=== PATIENT | female | born 1960 | race Caucasian/White ===

== ENCOUNTER → 2019-05-24 10:39 | Outpatient (CLI) | payer OTHER, SELFPAY ==
[2019-05-24 08:42] VITALS: BMI 26.2
[2019-05-24 11:54] LABS: AST(SGOT) 21 U/L (15-37); Alanine Aminotransfer ALT/SGPT 49 U/L (13-56); Albumin, Serum 4.1 g/dL (3.2-5.0); Alkaline Phosphatase 105 U/L (45-117); Anion Gap 6 (5-15); BUN 12 mg/dL (7-18); BUN/Creat Ratio 15.7 RATIO (10-20); Bilirubin, Direct 0.13 mg/dL (0.00-0.30); Calcium,Total 8.9 mg/dL (8.5-10.1); Chloride 105 mmol/L (98-107); Cholesterol 189 mg/dL (200); Creatinine, Serum 0.76 mg/dL (0.55-1.02); EST Glomerular Filtration Rate 82 mL/min (>60); Est Glom Filt Rate - Afr Amer 99 mL/min (>60); Globulin 3.5 g/dL (2.2-4.2); Glucose 102 mg/dL (74-106); High Density Lipoprotein 56 mg/dL; Potassium 3.8 mmol/L (3.5-5.1); Protein, Total 7.6 g/dL (6.4-8.2); Sodium Level 140 mmol/L (136-145); Triglycerides 180 mg/dL; Very Low Density Lipoprotein 36 mg/dL (5-40)
== END ==
PROVIDERS: Family Provider Family Medicine; PCP Family Medicine; Referring Provider Internal Medicine Cardiovascular Disease; Visit Provider Internal Medicine Cardiovascular Disease
DX: I10 Essential (primary) hypertension (principal); Z86.39 Personal history of other endocrine, nutritional and metabolic disease
CPT/HCPCS: 36415; 80048; 80061; 80076

== ENCOUNTER → 2019-06-26 09:11 | Outpatient (CLI) | payer OTHER, SELFPAY ==
[2019-05-24 08:42] VITALS: BMI 26.2
--- NOTE | 2019-06-26 09:14 | STE_ITS ---
Reason For Study: CAD Stress Results Protocol: ARJUN Maximum Predicted HR: 160 bpm Target HR: 136 bpm % Maximum Predicted HR: 83 % DurationHeart Rate Stage (mm:ss) (bpm) BP baseline 85 158/90 stage 1 3:00 103 160/90 stage 2 3:00 102 160/90 stage 3 3:00 125 162/90 stage 4 1:00 133 / recovery 88 158/88 Stress Duration: 10:00 mm:ss Maximum Stress HR: 133 bpm Baseline Echocardiogram Findings Stress Echo Wall motion Data Resting WM Intermediate WM Stress WM Interpretation Summary Exercise stress echo. 58-year-old lady with a history of hypertension, hyperlipidemia, coronary artery disease. Resting EKG demonstrates normal sinus rhythm with a rate of 76 bpm left bundle branch block is noted resting blood pressures 158/90 mmHg. The patient exercised according to regular Arjun protocol for a total duration of 10 minutes. The maximum heart rate attained was 142 bpm which was 88% of maximum predicted heart rate the maximum workload was 13.4 metabolic equivalents. At rest there were no ST or T wave changes noted other than the left bundle branch block pattern. At peak exercise the left bundle branch block pattern persisted. The resting blood pressure was 158/90 with a peak blood pressure 170/90 mmHg. No clinical angina was noted rate-pressure product was 20,250. The test was terminated due to the target heart rate being achieved. Stress echocardiogram. Resting echocardiographic images demonstrated borderline ejection fraction of 45% with septal IVCD pattern. At peak exercise there was thickening of all garcia reduction of the ventricular cavity size and peaking of ejection fraction of approximately 60%. No new wall motion abnormalities were noted. The above is not indicative of ischemia. Conclusion: Exercise stress test with no EKG criteria for ischemia at a high workload. Excellent functional capacity. Low normal ejection fraction with left bundle branch block pattern Ordering Physician: Rm Dawson Referring Physician: Rm Dawson Performed By: Supriya Macias, RDCS, RVT
== END ==
PROVIDERS: Family Provider Family Medicine; PCP Family Medicine; Referring Provider Internal Medicine Cardiovascular Disease; Visit Provider Internal Medicine Cardiovascular Disease
DX: I25.10 Atherosclerotic heart disease of native coronary artery without angina pectoris (principal)
CPT/HCPCS: 93017; 93350

== ENCOUNTER → 2020-05-30 07:15 | Outpatient (CLI) | payer MEDICAID, SELFPAY ==
[2019-05-24 08:42] VITALS: BMI 26.2
--- NOTE | 2020-05-30 07:18 | BI_ITS ---
MAMMOGRAPHY - BILATERAL SCREENING REASON FOR EXAM: Female, 59 years old. Routine annual screening examination. PERTINENT HISTORY: Mother with breast cancer. TECHNIQUE: Digital bilateral breast angela (3D mammographic acquisition) in the CC and MLO projections. 2-D mediolateral oblique (MLO) and craniocaudad (CC) views of both breasts were obtained. CAD: Full Field Digital Mammography with Computer Added Detection was performed. COMPARISON: Comparison is made with prior outside examination dated 05/22/2019. FINDINGS: Breast Composition: There are scattered areas of fibroglandular density. There are no dominant masses or suspicious calcifications. Stable 1.1 cm well-defined nodular density in the slightly upper medial aspect of the left breast. This most likely represents a small lymph node. There is also evidence of a faint 0.8 cm nodular density in the inferior medial portion of the left breast. Correlation with ultrasound is recommended for further evaluation. No other significant abnormalities are identified. BI/SCREEN MAMM (CAD) W/ANGELA BILAT IMPRESSION: Small nodular densities in the left breast as described. Correlation with ultrasound is recommended. ASSESSMENT CATEGORY: BIRADS Category 0: Incomplete. Need additional imaging evaluation. A letter regarding these results will be sent to the patient by the facility within 30 days. Approximately 10% of breast cancers are not detected by mammography. A normal mammogram should not delay biopsy of a clinically suspicious abnormality. [id number] Electronically Signed: Braeden Lan, at 8:26 EST , Service support ,
== END ==
PROVIDERS: PCP Family Medicine; Visit Provider Family Medicine
DX: Z12.31 Encounter for screening mammogram for malignant neoplasm of breast (principal); N63.20 Unspecified lump in the left breast, unspecified quadrant; Z80.3 Family history of malignant neoplasm of breast
CPT/HCPCS: 77063; 77067

== ENCOUNTER → 2020-06-05 09:22 | Outpatient (CLI) | payer MEDICAID, SELFPAY ==
[2019-05-24 08:42] VITALS: BMI 26.2
--- NOTE | 2020-06-05 09:24 | US_ITS ---
STUDY: ULTRASOUND BREAST - LEFT REASON FOR EXAM: Female, 59 years old. Abnormal screening mammogram. TECHNIQUE: Axial and longitudinal images of the LEFT breast were performed with a high resolution ultrasound transducer. # OF IMAGES: 25 COMPARISON: Comparison is made with prior mammogram dated 05/30/2020. FINDINGS: LEFT Breast: There is an 8 mm x 8 mm x 3 mm hypoechoic slightly irregular nodular density at the 7 o''clock position of the breast is 7 cm from nipple. Internal vascularity is seen. A similar appearing hypoechoic slightly irregular nodule measuring 1 cm x 0.6 cm x 0.5 cm is seen at the 10 o''clock position in the breast at 7 cm from the nipple. Internal vascularity is seen as well. Biopsy of both abnormalities is recommended. US/Breast Limited Unilateral IMPRESSION: 2 hypoechoic slightly irregular nodules at the 7 o''clock position of the breast and at the 10 o''clock position of the breasts is similar sinus on the nipple. A biopsy is recommended. ASSESSMENT CATEGORY: BIRADS Category 4: Suspicious - Biopsy Should Be Considered. A letter regarding these results will be sent to the patient by the facility within 30 days. Electronically Signed: Braeden Lan, at 11:12 EST , Service support ,
== END ==
PROVIDERS: PCP Family Medicine; Referring Provider Family Medicine; Visit Provider Family Medicine
DX: N63.24 Unspecified lump in the left breast, lower inner quadrant (principal)
CPT/HCPCS: 76642

== ENCOUNTER → 2020-06-19 | Outpatient (CLI) | payer OTHER, SELFPAY ==
--- NOTE | 2020-06-19 | IMM_PTH ---
PATIENT: YAHAIRA HOWARD LOC: [facility] U#:[id number] AGE/SX: 59/F ROOM: RE06/19/[address]: Dr. Randell Bojorquez MD : 1960 BED: DIS: 06/19/2020 SPEC #: [id number] RECD: 06/20/20 12:26 STATUS: DUANE RENicolás #: [id number] DAVIN: 06/19/20 00:[address]: Randell Bojorquez DEPT: IMMUNOHISTOCHEMISTRY RECD BY: Yaz Peterson ENTERED: 06/20/20 12:27 SP TYPE: IMMUNO OTHR DR: Dr. Brian Skelton DO Tissues: B - Left breast, NOS Procedures: Calponin-1(initial) CK8 (add) P40 (add) PHYSICIAN & INSTITUTION [place] [id number] SPECIMEN INFORMATION: Tissue Source: B - Left breast, lower inner quadrant, biopsy Clinical Info: Left breast mass x2 Specimen Number: [id number] CPT code: 36801, 77835 x2 METHODOLOGY: Deparaffinized sections of prefer/formalin-fixed tissue or PAP/DQ stained slides are incubated with monoclonal/polyclonal antibodies/oligonucleotide probes. Localization is made via biotin free immunoperoxidase method. Appropriate controls are performed and reacted as expected. Results on target cell population are indicated in the following table: RESULTS: ANTIBODY / CLONE RESULT P40 (BC28) positive Calponin-1 (TW894P) positive CK8 ([id number]) positive These tests were developed and their performance characteristics determined by [facility]. They may not have been cleared or approved by the U.S. Food and Drug Administration. The FDA has determined that such clearance or approval is not necessary. The above immunohistochemical/dualISH markers are ordered and reviewed by the Pathologist. INTERPRETATION: B. Left breast, lower inner quadrant, biopsy: Benign breast tissue. AM:saba 06/24/2020
--- NOTE | 2020-06-19 08:00 | BRBX_PTH ---
PATIENT: YAHAIRA HOWARD LOC: [facility] U#:[id number] AGE/SX: 59/F ROOM: RE06/19/[address]: Dr. Randell Bojorquez MD : 1960 BED: DIS: 06/19/2020 SPEC #: [id number] RECD: 06/19/20 09:11 STATUS: DUANE DANITZA #: [id number] DAVIN: 06/19/20 08:[address]: Randell Bojorquez DEPT: SURGICAL PATHOLOGY RECD BY: Deysi Briceno ENTERED: 06/19/20 10:27 SP TYPE: BREAST BX OTHR DR: Dr. Brian Skelton DO Tissues: A - Left breast, NOS B - Left breast, NOS Procedures: Surgery Specimen Level IV HEADER OPERATION: Left breast biopsy x2 PRE-OP DIAGNOSIS: Left breast mass x2 TISSUE SUBMITTED: A - Left breast tissue lower inner quadrant, B - Left breast tissue upper inner quadrant ISCHEMIC TIME: 1 minute FIXATION TIME: 11.5 hours MICROSCOPIC DIAGNOSIS A. Left breast, lower inner quadrant, core biopsy: Fibrocystic change. Focal intraductal hyperplasia without atypia. Banal microcalcifications. No evidence of malignancy. B. Left breast, upper inner quadrant, core biopsy: Fibrocystic change. Focal intraductal hyperplasia without atypia. Banal microcalcifications. No evidence of malignancy. See comment. AM:saba 06/20/20 COMMENT B. Immunohistochemistry ([id number]) supports the above diagnosis. MICROSCOPIC DESCRIPTION Slides are reviewed. GROSS DESCRIPTION A - Received in fixative is one container labeled with the patient's name and designated lower inner quadrant left breast. The specimen consists of multiple elongated fragments of degroot tissue that in aggregate measure 2 x 1 x 0.1 cm. The specimen is totally submitted in one cassette. B - Received in fixative is one container labeled with the patient's name and designated upper inner quadrant left breast. The specimen consists of multiple elongated fragments of degroot tissue that in aggregate measure 2.5 x 1 x 0.1 cm. The specimen is totally submitted in one cassette. / AM:saba 06/19/20 TC:5 CPT: 49946 x2
== END | disposition home or self-care (01) ==
PROVIDERS: PCP Family Medicine; Referring Provider Surgery; Visit Provider Surgery
DX: N60.12 Diffuse cystic mastopathy of left breast (principal); N62 Hypertrophy of breast
CPT/HCPCS: 88305; 88341; 88342

== ENCOUNTER → 2020-12-12 09:26 | Outpatient (CLI) | payer MEDICAID, SELFPAY ==
--- NOTE | 2020-12-12 09:29 | BI_ITS ---
MAMMOGRAPHY - UNILATERAL DIAGNOSTIC: LEFT BREAST REASON FOR EXAM: Female, 60 years old. post breast biopsy -- left breast PERTINENT HISTORY: Non-contributory. TECHNIQUE: Digital examination. Mediolateral oblique (MLO) and craniocaudad (CC) views of the breast were obtained. CAD: COMPARISON: None. FINDINGS: Breast Composition: Of scattered fibroglandular tissue There is 1 cm tiny nodule around 9 o''clock with a metallic clip aortic a tiny ill-defined nodule seen around 6 o''clock below the nipple with a metallic clip as well. Both of these are benign looking. No obvious spiculated lesion, microcalcifications, skin thickening or nipple retraction. There are benign-looking small lymph nodes in the left axilla. BI/DIAG MAMM W/CAD, UNILAT IMPRESSION: Negative for malignancy, Stable unilateral diagnostic mammogram. ASSESSMENT CATEGORY: FOLLOW-UP RECOMMENDATION: Approximately 10% of breast cancers are not detected by mammography. A normal mammogram should not delay biopsy of a clinically suspicious abnormality. Electronically Signed: Sangita Foster, at 9:14 EDT Tel , Service support ,
== END ==
PROVIDERS: PCP Family Medicine; Referring Provider Surgery; Visit Provider Surgery
DX: N63.0 Unspecified lump in unspecified breast (principal)
CPT/HCPCS: 77061; 77065; G0279

== ENCOUNTER 2021-09-10 12:38 | Outpatient (CLI) | payer MEDICAID, SELFPAY ==
--- NOTE | 2021-09-10 12:42 | BI_ITS ---
MAMMOGRAPHY - BILATERAL SCREENING REASON FOR EXAM: Female, 60 years old. Routine annual screening examination. PERTINENT HISTORY: Mother with breast cancer. History of prior left lung guided breast biopsies. TECHNIQUE: Digital bilateral breast angela (3D mammographic acquisition) in the CC and MLO projections. 2-D mediolateral oblique (MLO) and craniocaudad (CC) views of both breasts were obtained. CAD: Full Field Digital Mammography with Computer Added Detection was performed. COMPARISON: Comparison is made with prior mammogram dated 05/30/2020 and 12/12/2020. FINDINGS: Breast Composition: There are scattered areas of fibroglandular density. There are no dominant masses or suspicious calcifications. Stable 1 cm well-defined nodular density in the slightly upper medial aspect of the left breast. A tissue clip marker is seen within it. A faint 0.8 cm nodular density is also seen in the inferior medial portion of the left breast. A tissue clip marker is seen within the stable small benign appearing bilateral axillary lymph nodes. No other significant abnormalities are identified. There has been no significant change since the prior study. BI/SCRN MAMM (CAD)W/ANGELA BILAT IMPRESSION: Stable bilateral screening mammogram. Yearly follow-up mammogram recommended. (A) ASSESSMENT CATEGORY: BIRADS Category 2: Benign. A letter regarding these results will be sent to the patient by the facility within 30 days. Approximately 10% of breast cancers are not detected by mammography. A normal mammogram should not delay biopsy of a clinically suspicious abnormality. [id number] Electronically Signed: Braeden Lan MD at 13:26 EDT ,
== END 2021-09-10 23:59 | disposition home or self-care (01) ==
PROVIDERS: PCP Family Medicine; Visit Provider Family Medicine
DX: Z12.31 Encounter for screening mammogram for malignant neoplasm of breast (principal); Z80.3 Family history of malignant neoplasm of breast
CPT/HCPCS: 77063; 77067

== ENCOUNTER 2021-10-06 15:51 | Emergency (ER) | payer MEDICAID, SELFPAY ==
[2021-10-06] VITALS (7 sets, daily range): BP systolic 107–170; BP diastolic 70–85; PULSE 47–94; RESP 16–19; TEMP 36.6; O2SAT 97–99; BMI 26.4
--- NOTE | 2021-10-06 16:45 | EDS_ITS ---
HPI History of Present Illness Chief Complaint: Dizziness Narrative Narrative: 60-year-old female presenting with vertigo symptoms. She is a history of vertigo. She states she was seen about 2 weeks ago when this started by her primary care doctor who started her on prednisone. She states that she has had minimal improvement and over the last 24 hours is more dizzy. She denies headache. She has not had nausea vomiting. She denies any head injury. No visual complaints. [facility] Medical History Abnormal mammogram of left breast Atherosclerotic heart disease of [place] coronary artery without angina pectoris Diverticulosis DJD (degenerative joint disease) Essential (primary) hypertension History of hyperlipidemia History of non-ST elevation myocardial infarction (NSTEMI) (03/18/16) Left bundle branch block (LBBB) Mass of nasal sinus Obstructive sleep apnea Osteoarthritis Osteopenia Home Medications aspirin 81 mg PO DAILY@0800 07/03/15 [History Last Taken Unknown] cholecalciferol (vitamin D3) 1,000 unit PO DAILY 07/03/15 [History Last Taken Unknown] naproxen 250 mg PO DAILY PRN PRN 07/03/15 [History Last Taken Unknown] albuterol 90 mcg/actuation aerosol inhaler mcg INHALATION PRN 05/22/19 [History Last Taken Unknown] docusate sodium 100 mg capsule 100 mg PO DAILY 05/24/19 [History Last Taken Unknown] hydrochlorothiazide 25 mg tablet 25 mg PO DAILY #90 tab 05/24/19 [Rx Last Taken Unknown] potassium chloride 10 mEq tablet,extended release(part/cryst) 10 meq PO DAILY #90 tab 05/24/19 [Rx Last Taken Unknown] simvastatin 40 mg tablet 40 mg PO QHS #90 tab 05/24/19 [Rx Last Taken Unknown] diazepam [Valium] 2 mg PO TID PRN #15 tab 10/06/21 [Rx Last Taken Unknown] meclizine 25 mg PO DAILY PRN #30 tab 10/06/21 [Rx Last Taken Unknown] Allergy/AdvReac Type Severity Reaction Status Date / Time Sulfa (Sulfonamide Allergy Hives Verified 10/06/21 15:53 Antibiotics) Family History Mother Breast cancer Father Cancer lung cancer Surgical History History of hysterectomy History of left heart catheterization (03/19/16) History of sinus surgery History of tonsillectomy and adenoidectomy Social History Smoking Status: Never smoker second hand exposure: No alcohol intake: never substance use type: does not use caffeine: No frequency: daily ROS ROS ED Constitutional Constitutional ED: Denies chills or fever(s) Eyes Eyes: Reports other Details: Vertiginous dizziness ; Denies blurry vision or diplopia ENT ENT ED: Denies rhinorrhea or sore throat Cardiovascular Cardiovascular: Denies chest pain or palpitations Respiratory/Chest Respiratory/Chest: Denies cough or dyspnea Gastrointestinal Gastrointestinal: Denies abdominal pain, nausea or vomiting Genitourinary Genitourinary ED: Denies dysuria or hematuria Musculoskeletal Musculoskeletal: Denies arthralgias or myalgias Integumentary Denies rash Neurologic Neurologic: Denies headache(s) or weakness Psychiatric Psychiatric: Denies anxiety or depression EXAM Physical Exam Const Vital Signs: 10/06/21 15:52 10/06/21 16:00 10/06/21 16:01 Temperature 97.8 F Temperature Source Temporal Pulse Rate 93 60 Pulse Rate [Lying] Pulse Rate [Sitting (for 1 minute prior to obtaining)] Pulse Rate [Standing (for 1 minute prior to obtaining)] Respiratory Rate 16 18 Respiratory Effort Normal Respiratory Pattern Normal Blood Pressure 142/84 H 139/79 H Blood Pressure [Lying] Blood Pressure [Sitting (for 1 minute prior to obtaining)] Blood Pressure [Standing (for 1 minute prior to obtaining)] Blood Pressure Mean 103 99 Blood Pressure Mean [Lying] Blood Pressure Mean [Sitting (for 1 minute prior to obtaining)] Blood Pressure Mean [Standing (for 1 minute prior to obtaining)] Pulse Ox 99 97 Oxygen Delivery Method Room Air Room Air 10/06/21 17:00 10/06/21 18:38 10/06/21 19:43 Temperature Temperature Source Pulse Rate 58 L 94 Pulse Rate [Lying] 53 L Pulse Rate [Sitting (for 1 minute prior to obtaining)] 55 L Pulse Rate [Standing (for 1 minute prior to obtaining)] 66 Respiratory Rate 18 19 H Respiratory Effort Respiratory Pattern Blood Pressure 107/74 Blood Pressure [Lying] 160/73 H Blood Pressure [Sitting (for 1 minute prior to obtaining)] 166/82 H Blood Pressure [Standing (for 1 minute prior to obtaining)] 170/85 H Blood Pressure Mean 85 Blood Pressure Mean [Lying] 102 Blood Pressure Mean [Sitting (for 1 minute prior to obtaining)] 110 Blood Pressure Mean [Standing (for 1 minute prior to obtaining)] 113 Pulse Ox 97 Oxygen Delivery Method Room Air 10/06/21 20:37 Temperature Temperature Source Pulse Rate 48 L Pulse Rate [Lying] Pulse Rate [Sitting (for 1 minute prior to obtaining)] Pulse Rate [Standing (for 1 minute prior to obtaining)] Respiratory Rate 19 H Respiratory Effort Respiratory Pattern Blood Pressure 135/70 H Blood Pressure [Lying] Blood Pressure [Sitting (for 1 minute prior to obtaining)] Blood Pressure [Standing (for 1 minute prior to obtaining)] Blood Pressure Mean 91 Blood Pressure Mean [Lying] Blood Pressure Mean [Sitting (for 1 minute prior to obtaining)] Blood Pressure Mean [Standing (for 1 minute prior to obtaining)] Pulse Ox 98 Oxygen Delivery Method Room Air Positive well nourished General Appearance ED: NAD; Negative for pallor HEENT Reports moist mucous membranes HEENT Narrative: Reproducible vertiginous dizziness with Chandler-Hallpike greater to the left than to the right. Bilateral TMs normal. Negative for trauma Eyes PERRL and EOMs intact bilaterally Neck no lymphadenopathy and supple Resp normal respiratory effort and clear to auscultation bilaterally Cardio regular rate and regular rhythm Neuro oriented x3, CN's II-XII intact bilaterally and no sensory deficits noted Sensorium / Orientation: alert Motor Exam: strength 5/5 throughout Psych mental status grossly normal Skin General Skin Exam: Negative for jaundice or pallor MDM MDM MDM Narrative Medical decision making narrative: Patient treated with meclizine and Phenergan and on reevaluation at 1800 the patient is not feeling any better. At this point I did elect to order basic lab work and a CT of the brain because the patient has concern of a previous mass in the frontal region of her forehead that was biopsied. I do not suspect acute stroke at this point. She will be given Valium. Patient potassium was slightly low at 2.8. I gave her 40 mEq p.o. Her magnesium level is normal. Otherwise her lab work is pretty unremarkable. She requested CT of the brain which was normal. She is able to get up and move now and her dizziness is improved. I am not sure if this is because of the potassium more the Valium however I will give her a short supply of Valium until she can follow-up with her primary doctor. She is also given meclizine. She states that she is currently holding her potassium and her hydrochlorothiazide at the request of her primary care physician. I recommended she take another 40 mill equivalents tomorrow and then call his office to see about medication change for blood pressure. She is amenable to this. Patient stable discharge. Impression: 1. Vertigo 2. Hypokalemia Lab Data Labs: Laboratory Results - last 24 hr 10/06/21 10/06/21 10/06/21 16:10 16:10 16:10 WBC 11.9 H RBC 5.22 Hgb 15.6 H Hct 45.6 MCV 87.4 MCH 29.9 MCHC 34.2 RDW Std Deviation 43.7 RDW Coeff of Alivia 13.6 Plt Count 224 MPV 10.5 Immature Gran % (Auto) 0.600 Neut % (Auto) 67.9 Lymph % (Auto) 24.4 [place] % (Auto) 6.7 Eos % (Auto) 0.1 Baso % (Auto) 0.3 Absolute Neuts (auto) 8.1 H Absolute Lymphs (auto) 2.90 Nucleated RBC % 0 Sodium 145 Potassium 2.8 L Chloride 112 H Carbon Dioxide 27.0 Anion Gap 6 BUN 12 Creatinine 0.90 Estim Creat Clear Calc 55.97 Est GFR (MDRD) Af Amer 82 Est GFR (MDRD) Non-Af 68 BUN/Creatinine Ratio 13.4 Glucose 140 H Calcium 8.9 Magnesium 2.1 Total Bilirubin 0.60 AST 13 L ALT 47 Alkaline Phosphatase 90 Total Protein 7.2 Albumin 3.6 Globulin 3.6 Albumin/Globulin Ratio 1.0 Radiography Diagnostic Testing: Clinical Impression(s) from Imaging Studies Brain CT 10/06/21 17:59 IMPRESSION: There are no acute intracranial findings. Electronically Signed: Kevyn Broussard MD at 18:27 EDT Reading Location ID and State: [facility] / [place] , Service support , Discharge Plan Triage Chief Complaint: Dizziness ED Provider: Gunnar Olmstead Dx/Rx/DC Orders Instructions: ED Hypokalemia, ED Potassium-Rich Foods, ED Vertigo, Unspecified Prescriptions: New diazepam [Valium] 2 mg tablet 2 mg PO TID PRN (Reason: dizziness or vertigo) Qty: 15 RF: 0 meclizine 25 mg tablet 25 mg PO DAILY PRN (Reason: dizziness) Qty: 30 RF: 0 No Action docusate sodium 100 mg capsule 100 mg PO DAILY RF: 0 potassium chloride 10 mEq tablet,ER particles/crystals 10 meq PO DAILY Qty: 90 RF: 3 simvastatin 40 mg tablet 40 mg PO QHS Qty: 90 RF: 3 hydrochlorothiazide 25 mg tablet 25 mg PO DAILY Qty: 90 RF: 3 albuterol 90 mcg/actuation aerosol inhaler 90 mcg/actuation aerosol INHALATION PRNRF: 0 naproxen 250 MG tablet 250 mg PO DAILY PRN PRN (Reason: Pain) RF: 0 aspirin 81 MG tablet 81 mg PO DAILY@0800 RF: 0 cholecalciferol (vitamin D3) 1,000 UNIT tablet 1,000 unit PO DAILY RF: 0 Primary Care Provider: Brian Skelton Referrals: Brian Skelton DO [Primary Care Provider] - Disposition Disposition: Home, Self Care
[2021-10-06] MEDS: Meclizine HCl 25 MG Tablet PO (17:05)
[2021-10-06] MEDS: proMETHazine 25 MG/ML Syringe 12.5 MG IM (17:06)
--- NOTE | 2021-10-06 17:59 | CT_ITS ---
STUDY: CT BRAIN WITHOUT CONTRAST REASON FOR EXAM: Female, 60 years old. dizziness TECHNIQUE: Transaxial CT imaging of the brain was performed without administration of intravenous contrast material. Individualized dose optimization techniques were used for this CT. COMPARISON: None FINDINGS: Normal calvarium. Normal soft tissues. Normal size ventricles and extra-axial spaces for the patient''s age. Normal white matter tracts of the cerebral hemispheres. Normal basal ganglia and thalami. Normal brainstem. Normal cerebellum. There is no intracranial hemorrhage. There are no findings of an acute ischemic infarction. There are calcifications noted in the distal vertebral arteries. There are calcifications noted in the cavernous carotid arteries. This is consistent for atherosclerotic disease. Normal visualized paranasal sinuses. ASPECTS 10 CT/Brain/Head without Contrast IMPRESSION: There are no acute intracranial findings. Electronically Signed: Kevyn Broussard MD at 18:27 EDT ,
[2021-10-06 18:12] LABS: Absolute Neutrophil Count 8.1 X10^3/uL (2.0-7.7); Basophil# 0.03 X10^3/uL; Basophil% 0.3 % (0-1); Eosinophil# 0.01 X10^3/uL; Eosinophils% 0.1 % (0-5); Hematocrit 45.6 % (37-47); Hemoglobin 15.6 g/dL (12.0-15.0); Lymphocyte % 24.4 % (19-41); Mean Corp Hgb Conc 34.2 g/dL (32-36); Mean Corpuscular Hgb 29.9 pg (27.0-32.0); Mean Corpuscular Volume 87.4 fL (81-99); Mean Platelet Vol. 10.5 fl (6.2-12.0); Monocyte% 6.7 % (0-10); NRBC Flagged by Analyzer 0 % (0-5); Neutrophil # 8.08 X10^3/uL (2.7-7.7); Neutrophil % 67.9 % (47-70); Platelet Count 224 K/mm3 (150-450); RBC Distribution Width CV 13.6 % (11.6-14.6); RBC Distribution Width SD 43.7 fl (35.1-43.9); Red Blood Count 5.22 M/mm3 (4.2-5.4); White Blood Count 11.9 K/mm3 (4.4-11.0)
[2021-10-06 18:31] LABS: AST(SGOT) 13 U/L (15-37); Alanine Aminotransfer ALT/SGPT 47 U/L (13-56); Albumin, Serum 3.6 g/dL (3.2-5.0); Alkaline Phosphatase 90 U/L (45-117); Anion Gap 6 (5-15); BUN 12 mg/dL (7-18); BUN/Creat Ratio 13.4 RATIO (10-20); Calcium,Total 8.9 mg/dL (8.5-10.1); Chloride 112 mmol/L (98-107); EST Glomerular Filtration Rate 68 mL/min (>60); Est Glom Filt Rate - Afr Amer 82 mL/min (>60); Estimated Creatinine Clearance 55.97 ml/min; Globulin 3.6 g/dL (2.2-4.2); Glucose 140 mg/dL (74-106); Potassium 2.8 mmol/L (3.5-5.1); Protein, Total 7.2 g/dL (6.4-8.2); Sodium Level 145 mmol/L (136-145)
[2021-10-06] MEDS: diazePAM 2 MG Tablet PO (18:33)
[2021-10-06] MEDS: Potassium Chloride Oral Tablet 20 MEQ 40 MEQ PO (18:50)
[2021-10-06 19:15] LABS: Magnesium 2.1 mg/dL (1.6-2.6)
== END 2021-10-06 21:12 | disposition home or self-care (01) ==
PROVIDERS: Emergency Provider Student in an Organized Health Care Education/Training Program; PCP Family Medicine; Visit Provider Student in an Organized Health Care Education/Training Program
DX: R42 Dizziness and giddiness (principal); E87.6 Hypokalemia; E78.5 Hyperlipidemia, unspecified; I10 Essential (primary) hypertension; I25.10 Atherosclerotic heart disease of native coronary artery without angina pectoris; I25.2 Old myocardial infarction; Z79.82 Long term (current) use of aspirin; Z79.899 Other long term (current) drug therapy
CPT/HCPCS: 70450; 80053; 83735; 85025; 96372; 99283

== ENCOUNTER → 2022-10-05 | Outpatient (CLI) | payer MEDICAID, SELFPAY ==
--- NOTE | 2022-10-05 10:56 | BI_ITS ---
MAMMOGRAPHY - BILATERAL SCREENING REASON FOR EXAM: Female, 61 years old. Routine annual screening examination. PERTINENT HISTORY: Mother with breast cancer. History of prior left ultrasound-guided breast biopsy. TECHNIQUE: Digital bilateral breast angela (3D mammographic acquisition) in the CC and MLO projections. 2-D mediolateral oblique (MLO) and craniocaudad (CC) views of both breasts were obtained. CAD: Full Field Digital Mammography with Computer Added Detection was performed. COMPARISON: Comparison is made with prior examination dated September 10, 2021 and May 30, 2020. FINDINGS: Breast Composition: There are scattered areas of fibroglandular density. There are no dominant masses or suspicious calcifications. A tissue clip marker is seen within a 5 mm nodular density in the slightly upper medial aspect of the left breast. Tissue clip marker is also seen within a tiny nodular density in the deep inferior medial aspect of the left breast. No other significant abnormalities are identified. There has been no significant change since the prior study. BI/SCRN MAMM (CAD)W/ANGELA BILAT IMPRESSION: Stable bilateral screening mammogram. Yearly follow-up mammogram recommended. (A) ASSESSMENT CATEGORY: BIRADS Category 2: Benign. A letter regarding these results will be sent to the patient by the facility within 30 days. Approximately 10% of breast cancers are not detected by mammography. A normal mammogram should not delay biopsy of a clinically suspicious abnormality. [id number] Electronically Signed: Braeden Lan MD at 12:26 EDT ,
== END | disposition home or self-care (01) ==
LOC: OPBI 10:54
PROVIDERS: PCP Family Medicine; Referring Provider Family Medicine; Visit Provider Family Medicine
DX: Z12.31 Encounter for screening mammogram for malignant neoplasm of breast (principal)
CPT/HCPCS: 77063; 77067